=== PATIENT | male | born 1995 | race Caucasian/White ===

== ENCOUNTER 2019-04-10 17:06 | Emergency (ER) | payer OTHER ==
[~2019-04-10] VITALS: Ht 175.3 cm; Wt 65.8 kg
[2019-04-10 17:35] VITALS: BP 123/71
[2019-04-10] MEDS ORDERED: ACETAMINOPHEN 325 MG TAB PO ONE (18:30)
== END 2019-04-10 19:25 | disposition home or self-care (01) ==
LOC: ER 17:06
DX: S01.83XA Puncture wound without foreign body of other part of head, initial encounter (principal); W22.8XXA Striking against or struck by other objects, initial encounter; Y93.89 Activity, other specified; Y92.69 Other specified industrial and construction area as the place of occurrence of the external cause; Y99.8 Other external cause status